=== PATIENT | male | born 1980 | race Caucasian/White ===

== ENCOUNTER → 2018-06-16 | Outpatient (CLI) | payer BC ==
[~2018-06-16] MED LIST: IOHEXOL 300 MG/ML 75 ML VIAL. IV ONE
--- NOTE | 2018-06-16 16:51 | RAD ---
CT SOFT TISSUE NECK W/CONTRAST Indication: ENLARGED BILATERAL LYMPH NODES IN NECK 3 YEARS, 75MLS OMNI 300 IV CONTRAST Exposure: One or more of the following individualized dose reduction techniques were utilized for this examination: 1. Automated exposure control 2. Adjustment of the mA and/or kV according to patient size 3. Use of iterative reconstruction technique. Comparison: None are available. Contrast: Intravenous contrast FINDINGS: Visualized sinuses: Mild mucosal thickening of the right maxillary and ethmoid sinuses. Visualized orbits: Unremarkable Vessels: Unremarkable Parotid glands: Unremarkable Submandibular glands: Unremarkable Pharynx/larynx: The airway is effaced at the level of the oropharynx, may be due to large tonsils. No midline deviation. The palatine tonsils are somewhat prominent in size, but bilaterally symmetric. There is also prominence of the adenoidal tissue and soft palate tissue. Parapharyngeal tissues: Symmetric and unremarkable Lymph nodes: Small cervical lymph nodes are identified bilaterally, measuring up to 8 mm in short axis diameter. Thyroid: Symmetric Upper thorax: Lungs are clear Soft tissues: Unremarkable Mandible/maxilla: Unremarkable Cervical spine: Degenerative spondylosis greatest at C5-C6. At least mild central stenosis at this level as well as neural foraminal narrowing particularly on the left. Mild reversal the normal cervical lordosis. IMPRESSION: 1. Small cervical lymph nodes bilaterally measuring up to 8 mm short axis, may just be reactive. 2. Effacement of the airway at the oropharynx, appears to be due to symmetrically enlarged palatine tonsils and soft palate. Could just be a normal appearance if the patient is demonstrating no airway symptoms, otherwise consider pathologic etiology for tonsillar enlargement. There is also mild enlargement of the adenoids. Electronically signed by: Prabhakar Buckley MD (06/16/2018 4:48 PM) [facility]
== END | disposition home or self-care (01) ==
LOC: CT 13:38
PROVIDERS: ATTEND Family Medicine
DX: R59.0 Localized enlarged lymph nodes (principal); J35.2 Hypertrophy of adenoids; M47.892 Other spondylosis, cervical region; M48.02 Spinal stenosis, cervical region
CPT/HCPCS: 70491; Q9967

== ENCOUNTER 2021-07-14 17:02 | Inpatient (IN) | payer BC ==
[~2021-07-14] VITALS: Ht 185.4 cm; Wt 116.6 kg
--- NOTE | 2021-07-14 17:43 | PHYS DOC ---
General Adult EDM: Chief Complaint: DYSPNEA/RESPIRATOY DISTRESS HPI: HPI: 41-year-old male presents with shortness of breath. The patient was diagnosed with COVID-19 12 days ago. He was feeling better earlier last week. He started to have cough with mild hemoptysis on . He went to his primary care physician today and a chest x-ray showed bilateral pneumonia. His primary care physician, Dr. Zimmerman sent him to the emergency room. The patient was already treated with a complete course of azithromycin after his initial diagnosis of Covid. He has had some right-sided chest pain and mild shortness of breath. He has decreased exercise tolerance but this is not worse than when he was first diagnosed with Covid. (JEAN HELMS DO) Review of Systems: Review of Systems: Constitutional: Denies fever or chills Eyes: Denies change in visual acuity HENT: Denies nasal congestion or sore throat Respiratory: Cough with shortness of breath Cardiovascular: Denies chest pain or edema GI: Denies abdominal pain, nausea, vomiting, bloody stools or diarrhea : Denies dysuria Musculoskeletal: Denies back pain or joint pain Integument: Denies rash Neurologic: Denies headache, focal weakness or sensory changes Endocrine: Denies polyuria or polydipsia Lymphatic: Denies swollen glands Psychiatric: Denies depression or anxiety (JEAN HELMS DO) Current Medications: Current Meds: Current Medications Medications (Trade) Dose Ordered Sig/Margarito Start Time Stop Time Status Last Admin Dose Admin Ceftriaxone Sodium 1 gm/ Sodium Chloride 50 ml @ 100 mls/hr 1X ONCE 07/14/21 17:30 07/14/21 17:59 UNV (JENA HELMS DO) Allergies: Allergies: Allergies Coded Allergies Type Severity Reaction Last Updated Verified No Known Drug Allergies 06/16/18 No (JEAN HELMS DO) Physical Exam: PE: Constitutional: Well developed, well nourished, no acute distress, non-toxic appearance. [] HENT: Normocephalic, atraumatic, bilateral external ears normal, oropharynx moist, no oral exudates, nose normal. [] Eyes: PERRLA, EOMI, conjunctiva normal, no discharge. [] Neck: Normal range of motion, no tenderness, supple, no stridor. [] Cardiovascular:Heart rate regular rhythm, no murmur [] Lungs & Thorax: Bilateral breath sounds clear to auscultation [] Abdomen: Bowel sounds normal, soft, no tenderness, no masses, no pulsatile masses. [] Skin: Warm, dry, no erythema, no rash. [] Back: No tenderness, no CVA tenderness. [] Extremities: No tenderness, no cyanosis, no clubbing, ROM intact, no edema. [] Neurologic: Alert and oriented X 3, normal motor function, normal sensory functi on, no focal deficits noted. [] Psychologic: Affect normal, judgement normal, mood normal. [] (JEAN HELMS DO) EKG: EKG: Sinus rhythm, rate 112, leftward axis, no ST elevation or depression. [] (JEAN HELMS DO) Radiology/Procedures: Radiology/Procedures: [] (JEAN HELMS DO) Heart Score: C/O Chest Pain: Yes HEART Score for Chest Pain: HEART Score for Chest Pain Response (Comments) Value History Slighlty/Non-Suspicious 0 ECG Nonspecific Repolarizatio 1 Age < 45 0 Risk Factors 1 or 2 Risk Factors 1 Total 2 Risk Factors: Risk Factors: DM, Current or recent (<one month) smoker, HTN, HLP, family history of CAD, obesity. Risk Scores: Score 0 - 3: 2.5% MACE over next 6 weeks - Discharge Home Score 4 - 6: 20.3% MACE over next 6 weeks - Admit for Clinical Observation Score 7 - 10: 72.7% MACE over next 6 weeks - Early Invasive Strategies (JEAN HELMS DO) Course & Med Decision Making: Course & Med Decision Making Pertinent Labs and Imaging studies reviewed. (See chart for details) The patient brought a copy of his chest x-ray from the primary care physician office and it shows clear bilateral pneumonia diffusely throughout. It looks like Covid pneumonia but cannot rule out bacterial pneumonia. I will treat the patient with Rocephin and Levaquin in the ER. Covid PCR is pending. Patient will get a CT angiogram to rule out pulmonary embolus. I will be admitting the patient to the hospital. I spoke with Dr. Zimmerman and he has accepted the patient for admission. The patient is in agreement with this plan. [] (JEAN HELMS DO) Course & Med Decision Making Patient is a 41-year-old male who is care was transferred to tx at checkout pending CT of the chest and disposition. Patient awake alert and oriented in mild respiratory distress with some pleuritic chest pain. Vital signs initially with tachycardia and tachypnea. CT notable for right-sided pneumothorax. Chest tube placed successfully. Patient's symptoms improved with vital signs improving. Discussed all findings with patient and recommended admission for continued evaluation and treatment of his pneumothorax possibly secondary to Covid +12 days ago and recent hemoptysis. Cultures were obtained and started on IV antibiotics. (NEVAEH PATTON MD) Dragon Disclaimer: Dragon Disclaimer: This electronic medical record was generated, in whole or in part, using a voice recognition dictation system. (JEAN HELMS DO) Departure Departure: Impression: Primary Impression: COVID-19 Additional Impressions: Pneumonia of both lungs Qualified Codes: J18.9 - Pneumonia, unspecified organism Pneumothorax Disposition: 02 SHORT TERM HOSPITAL Condition: STABLE Referrals: ANCA ZIMMERMAN MD (PCP) JEAN HELMS DO Jul 14, 2021 17:43 NEVAEH PATTON MD Jul 14, 2021 19:25
[2021-07-14] MEDS ORDERED: CONTRAST GIVEN. MC PRN (17:45)
[2021-07-14] MEDS ORDERED: IOHEXOL 350 MG/ML 100 ML VIAL. IV ONE (17:45)
[2021-07-14] MEDS ORDERED: ONDANSETRON PF 4 MG/2 ML VIAL. IVP PRN (18:00)
[2021-07-14 18:16] LABS: BASO # 0.1 x10^3/uL (0.0-0.2); BASO % 1 % (0-3); EOS # 0.1 x10^3/uL (0.0-0.7); EOS % 1 % (0-3); HEMATOCRIT 44.2 % (39.0-53.0); HEMOGLOBIN 14.7 g/dL (13.0-17.5); LYMPH # 1.7 x10^3/uL (1.0-4.8); LYMPH % 15 % (24-48); MEAN CORPUSCULAR HEMOGLOBIN 29 pg (25-35); MEAN CORPUSCULAR HGB CONC 33 g/dL (31-37); MEAN CORPUSCULAR VOLUME 88 fL (79-100); MONO # 1.3 x10^3/uL (0.0-1.1); MONO % 11 % (0-9); NEUT # 8.2 x10^3uL (1.8-7.7); NEUT % 72 % (31-73); PLATELET COUNT 354 x10^3/uL (140-400); RED BLOOD COUNT 5.05 x10^6/uL (4.30-5.70); RED CELL DISTRIBUTION WIDTH 13.7 % (11.5-14.5); WHITE BLOOD COUNT 11.5 x10^3/uL (4.0-11.0)
[2021-07-14 18:21] LABS: CALCIUM 9.5 mg/dL (8.5-10.1); GFR 81.9; POTASSIUM 4.3 mmol/L (3.5-5.1)
--- NOTE | 2021-07-14 18:25 | RAD ---
CTA scan of the Chest with Contrast (Pulmonary Embolism protocol) 07/14/2021 Clinical History: Covid 19. Shortness of breath. Technique: After the intravenous administration of 87.2 cc of Omnipaque 350, contiguous, 0.625 mm axi al sections were obtained through the chest. 2 mm axial and 3D MIP coronal and sagittal reconstructe d images were obtained. One or more of the following individualized dose reduction techniques were utilized for this study: 1. Automated exposure control. 2. Adjustment of the mA and/or kV according to patient size. 3. Use of iterative reconstruction technique. Findings: No filling defect is seen within the major branches of either pulmonary artery. There is n o CT evidence of pulmonary embolism. The heart and thoracic aorta are within normal limits. Bilateral perihilar infiltrates are seen scattered throughout both lungs. A large bulla/bleb is seen involving the right upper lobe which measures 11 cm in size. There is a moderate to large sized right pneumothorax. No pleural effusion is seen. Impression: 1. There is no CT evidence of pulmonary embolism. 2. Moderate to large sized right pneumothorax. These findings were discussed with Dr. Rogers. FOR INTERNAL CODING PURPOSES RESULT CODE: (C) Electronically signed by: Anjel Voss MD (07/14/2021 6:22 PM) [place] [id number]
[2021-07-14 18:27] LABS: ALBUMIN 3.3 g/dL (3.4-5.0); ALBUMIN/GLOBULIN RATIO 0.8 (1.0-1.7); TOTAL BILIRUBIN 0.3 mg/dL (0.2-1.0); TOTAL PROTEIN 7.2 g/dL (6.4-8.2)
[2021-07-14] MEDS ORDERED: LIDOCAINE 1% Multi-Dose 20 ML VIAL. IJ ONE (18:45)
--- NOTE | 2021-07-14 20:18 | EKG ---
[address] [address] Test Date: 2021-07-14 Test Time: 17:36:02 Pat Name: NORIS SOTELO Department: Room: Gender: M [facility] Worker: BUD : 1980 Requested By: JEAN HELMS Order Number: [id number] Reading MD: Guero Ochoa MD Measurements Intervals [place] Rate: 112 P: 64 GA: 148 QRS: -22 QRSD: 88 T: 88 QT: 306 QTc: 419 Interpretive Statements SINUS TACHYCARDIA NON-SPECIFIC ST/T CHANGES Electronically Signed On 07-15-2021 9:11:03 MICROBIOLOGY TECHNOLOGIST by Guero Ochoa MD
--- NOTE | 2021-07-14 21:15 | RAD ---
Study: XR CHEST 1V Indication: Chest tube placement. Comparison: Same day CT chest. Findings: Right-sided chest tube with the tip projecting over the ipsilateral hilum. The right-sided pneumothor ax on the recently performed CT chest has decreased. Bilateral ill-defined airspace opacities. Possib le small amount of pleural fluid on the right. The cardiomediastinal silhouette is within normal limi ts for size. Impression: 1. Placement of a right-sided chest tube. The right pneumothorax on the recently performed CT has dec reased in size. 2. Multifocal ill-defined airspace opacities on both the right and left. Possible trace pleural fluid on the right. Electronically signed by: RAMA DOUGLAS MD (07/14/2021 9:13 PM) [facility]
[2021-07-14] MEDS ORDERED: MORPHINE SULFATE 4 MG/ML DISP.SYRIN. IV ONE (21:30)
[2021-07-14] MEDS ORDERED: IV RINGERS SOLUTION,LACTATED 1,000 ML IV ONE (21:30)
[2021-07-15 00:08] LABS: BACTERIA,URINE 0 /HPF (0-FEW); BILIRUBIN,URINE NEG (NEG); CLARITY,URINE CLEAR; COLOR,URINE YELLOW; GLUCOSE,URINE NEG (NEG); NITRITE,URINE NEG (NEG); RBC,URINE 0 /HPF (0-2); SQUAMOUS EPITHELIAL CELL,UR FEW /LPF; UROBILINOGEN,URINE 0.2 mg/dL (0.2 mg/dL); WBC,URINE 0 /HPF (0-4)
--- NOTE | 2021-07-15 05:35 | RAD ---
XR CHEST 1V Clinical Indication: Reason: POST CHEST TUBE REMOVAL / Spl. Instructions: / History: Comparison: AP chest, prior day. Findings: Small-caliber right chest tube has been removed. The cardiomediastinal silhouette is normal. Moderate bilateral patchy interstitial opacities are unchanged. There is no significant pneumothorax. There i s a large bulla of the lateral right midlung. No pleural effusion is appreciated. No acute bone abnor mality. IMPRESSION: 1. Removal of right chest tube. No significant pneumothorax. 2. Bilateral infiltrates are unchanged. Electronically signed by: Rubin Hendricks MD (07/15/2021 5:33 AM) [facility]
[2021-07-15] MEDS ORDERED: MORPHINE SULFATE 2 MG/ML DISP.SYRIN. IVP PRN (06:00)
[2021-07-15 08:00] VITALS: BP 120/88
--- NOTE | 2021-07-15 08:37 | NUR ---
Patient arrived to the unit via gurney from the ER. Patient is alert and oriented. Patient is complaining of a small amount of pain in the right anterior chest post chest tube placement/removal. Patient is currently sitting bedside with call light in reach. HANNAH
[2021-07-15 10:50] VITALS: BP 110/66
[2021-07-15] MEDS ORDERED: LORazepam 0.5 MG TABLET PO PRN (13:30)
[2021-07-15] MEDS ORDERED: PIP/TAZO PER PHARMACY MC PRN (13:30)
[2021-07-15] MEDS: PIPERACILLIN/TAZOBACTAM 3.375 GM in IV NORMAL SALINE 50ML 50 ML IV SCH ×2 (14:39→19:51)
[2021-07-15] MEDS: DEXAMETHASONE SOD PHOS 4 MG/ML VIAL. IVP SCH ×2 (14:39→21:45)
[2021-07-15] MEDS: BENZONATATE 100 MG CAPSULE. PO SCH ×2 (14:40→20:31)
[2021-07-15 15:25] VITALS: BP 113/72
[2021-07-15] MEDS ORDERED: BUDESONIDE 0.5 MG/2 ML NEBU NEB ONE (16:00)
[2021-07-15] MEDS: IPRATROPIUM/ALBUTEROL 20/100mcg/INH INHALER. INH SCH ×2 (16:00→20:31)
[2021-07-15] MEDS ORDERED: REMDESIVIR LOAD in IV NORMAL SALINE 250ML TV IV ONE (17:00)
--- NOTE | 2021-07-15 18:17 | PN ---
DATE: 07/15/2021 SUBJECTIVE: A 41-year-old male came in through the Emergency Room, actually initially seen in the office and then sent to the ER because of a pneumothorax as well as 5 lobe pneumonia, positive COVID-19 pneumonia. The patient is in respiratory distress. The patient was admitted to the hospital for further evaluation and treatment. The patient otherwise is admitted for IV antibiotic therapy. He had a chest tube placed because of the pneumothorax as well as receiving double antibiotics, remdesivir. He requires oxygen. He is markedly oxygen dependent at this time. The patient has been ill for the last couple of weeks, although this has gotten progressively worse despite outpatient therapy. OBJECTIVE: VITAL SIGNS: Blood pressure 142/90, respiratory rate 24, pulse 105, temperature approximately 100 degrees, 2 liters at 94, without it in the upper 80s. GENERAL: The patient is making fairly good progress overall. LUNGS: Diminished throughout, poor movement of air. CARDIOVASCULAR: Regular sinus rhythm, tachy at times. ABDOMEN: Soft, nontender. EXTREMITIES: No clubbing, cyanosis, nor edema. NEUROLOGIC: Stable. IMPRESSION: 1. Sepsis. 2. Five lobe pneumonia. 3. Positive COVID-19. 4. Moderate protein malnutrition. 5. Acute respiratory distress. PLAN: Continue on IV antibiotic therapy, remdesivir, steroids and Lovenox. FELIPE/KAITLIN DR: Tod TID: [id number]
[2021-07-15 19:44] VITALS: BP 121/74
[2021-07-15] MEDS: ENOXAPARIN 40 MG/0.4 ML SYRINGE. SQ SCH (20:31)
[2021-07-15 23:31] VITALS: BP 97/63
[2021-07-16] MEDS: PIPERACILLIN/TAZOBACTAM 3.375 GM in IV NORMAL SALINE 50ML 50 ML IV SCH ×3 (01:47→13:39)
[2021-07-16 02:40] VITALS: BP 118/73
[2021-07-16 05:45] VITALS: BP 128/87
[2021-07-16] MEDS: DEXAMETHASONE SOD PHOS 4 MG/ML VIAL. IVP SCH ×2 (05:45→13:39)
[2021-07-16 06:24] LABS: BASO % 0 % (0-3); EOS % 0 % (0-3); HEMATOCRIT 42.5 % (39.0-53.0); HEMOGLOBIN 14.3 g/dL (13.0-17.5); LYMPH % 9 % (24-48); MEAN CORPUSCULAR HEMOGLOBIN 30 pg (25-35); MEAN CORPUSCULAR HGB CONC 34 g/dL (31-37); MEAN CORPUSCULAR VOLUME 89 fL (79-100); MONO # 0.5 x10^3/uL (0.0-1.1); MONO % 4 % (0-9); NEUT # 9.3 x10^3uL (1.8-7.7); NEUT % 87 % (31-73); PLATELET COUNT 300 x10^3/uL (140-400); RED BLOOD COUNT 4.79 x10^6/uL (4.30-5.70); RED CELL DISTRIBUTION WIDTH 13.3 % (11.5-14.5); WHITE BLOOD COUNT 10.8 x10^3/uL (4.0-11.0)
[2021-07-16 06:26] LABS: CALCIUM 9.6 mg/dL (8.5-10.1); CREATININE 0.9 mg/dL (0.7-1.3); GFR 92.5; POTASSIUM 4.6 mmol/L (3.5-5.1)
[2021-07-16] MEDS: ENOXAPARIN 40 MG/0.4 ML SYRINGE. SQ SCH (08:08)
[2021-07-16] MEDS: BENZONATATE 100 MG CAPSULE. PO SCH (08:09)
[2021-07-16] MEDS: IPRATROPIUM/ALBUTEROL 20/100mcg/INH INHALER. INH SCH ×2 (08:12→11:42)
[2021-07-16 10:03] LABS: DIRECT BILIRUBIN 0.1 mg/dL (0.0-0.2); TOTAL BILIRUBIN 0.4 mg/dL (0.2-1.0); TOTAL PROTEIN 7.6 g/dL (6.4-8.2)
[2021-07-16 10:27] VITALS: BP 121/64
[2021-07-16] MEDS ORDERED: METOPROLOL SUCC 24HR ER 25 MG TAB.ER.24H. PO SCH (11:15)
[2021-07-16 11:41] VITALS: BP 121/64
[2021-07-16] MEDS ORDERED: REMDESIVIR 100mg in NORMAL SALINE 250ML X 4 DAYS IV SCH ×2 (13:15→17:00)
--- NOTE | 2021-07-16 14:51 | NUR ---
VSS. Pt on room air, O2 sats sustaining 93-95%. Pt sinus tach. Heart rate 140-150's during activity. Dr. Zimmerman notified. Pt started on Metoprolol 25 mg PO daily. Pt reports needing to leave no later than 1430 so he can go home to his daughter today. Reports he has no friends or family to watch his daughter. Dr. Zimmerman at bedside to discuss pt needing to stay. Pt declines to stay in hospital. AMA paperwork signed. IV discontinued. Pt discharged @ 1426.
[2021-07-16] MEDS ORDERED: LACTOBACILLUS RHAMNOSUS GG 1 CAPSULE. PO SCH (21:00)
--- NOTE | 2021-07-23 12:19 | DS ---
DATE OF DISCHARGE: 07/16/2021 HOSPITAL COURSE: A 41-year-old male came in through the Emergency Room, actually initially seen in the office setting and had a severe cough, hemoptysis. The patient had been recently diagnosed with COVID-19 approximately 12 days ago. The patient came in, he had significant infiltrates in 5 lobes of his lung. The patient also had a severe cough and developed a right pneumothorax, seen in the Emergency Room, chest tube was placed and suction applied and reinflated. The patient notes he is still extremely short of breath and because of his COVID and if you look at his chest x-ray, showing multiple lobe pneumonia. Pulse rates upwards of 120 or so. The patient was admitted for aggressive IV antibiotic therapy. He was running a low-grade temperature, approximately a 100, respiratory rate 25, blood pressure 160/90, 2 liters at 97. The patient otherwise made good progress on medications, IV antibiotic therapy including remdesivir, metoprolol, Zosyn and Levaquin. The patient's pneumothorax was followed and found to be in stable condition. He made good progress. He was recommended to stay, he wanted to leave A because of the relationship with his daughter, having to have take care of her. In any case, the patient was discharged home in good condition. He will be followed up as an outpatient. He will continue on oral medications, obviously until given phone number to call if there are any problems beforehand. IMPRESSION: Therefore, 5-lobe pneumonia, acute respiratory failure, COVID-19 pneumonia, pneumothorax of the right lung, hypertensive urgency, moderate protein malnutrition. The patient will be discharged home on a heart healthy diet, decreased activity. Follow up in 7-10 days or sooner as needed and make further assessment on him as indicated as an outpatient. SHIRAZ DR: Tod TID: [id number]
== END 2021-07-16 14:27 | disposition left against medical advice (07) | DRG 871 ==
LOC: ER 17:02 → EDBD 17:02 → 1 SOUTH 07-15 05:58 → EDBD 07-15 05:58
PROVIDERS: ADMIT Family Medicine; ATTEND Family Medicine
PROC: 5A09357 Assistance with Respiratory Ventilation, Less than 24 Consecutive Hours, Continuous Positive Airway Pressure (ICD-10-PCS; principal; 2021-07-14)
PROC: 0W9930Z Drainage of Right Pleural Cavity with Drainage Device, Percutaneous Approach (ICD-10-PCS; 2021-07-14)
PROC: XW033E5 Introduction of Remdesivir Anti-infective into Peripheral Vein, Percutaneous Approach, New Technology Group 5 (ICD-10-PCS; 2021-07-15)
DX: A41.89 Other specified sepsis (principal); U07.1 COVID-19; J12.82 Pneumonia due to coronavirus disease 2019; J96.01 Acute respiratory failure with hypoxia; J93.9 Pneumothorax, unspecified; E44.0 Moderate protein-calorie malnutrition; I16.0 Hypertensive urgency; Z99.81 Dependence on supplemental oxygen; Z68.33 Body mass index [BMI] 33.0-33.9, adult; Z53.29 Procedure and treatment not carried out because of patient's decision for other reasons
CPT/HCPCS: 36415; 71045; 71275; 80048; 80053; 80076; 81001; 83605; 84484; 85025; 87040; 87426; 93005; 94640; 96365; 96366; 96375; J1100; J1650; J1956; J2270; J2405; J2543; J3010; J7050; J7120; Q9967; U0003; 99285-25